=== PATIENT | male | born 1975 | race Caucasian/White ===

== ENCOUNTER 2017-06-05 10:31 | Emergency (ER) | payer OTHER, SELFPAY ==
[2017-06-05] MEDS ORDERED: Norflex 60 MG/2 ML IM ONE (10:43)
[2017-06-05] MEDS ORDERED: TORAdol 30 mg Injection IM ONE (10:43)
--- NOTE | 2017-06-05 10:45 | ERPHSYRPT ---
- History of Present Illness Time Seen by Provider: 06/05/17 10:37 Source: patient Patient Subjective Stated Complaint: PT REPORTS THAT HE HAS CHRONIC BACK PAIN ET NEEDS A PAIN SHOT-DENIES INJURY-STATES THAT HE CONTACTED PCP [facility] INFORMED THAT THEY NO LONGER GAVE PAIN SHOTS-STATES THAT HE USUALLY TAKES VICODIN FOR PAIN Triage Nursing Assessment: PT PINK WARM ET [id number] TO ED ROOM WITH NO LIMP-MOVING ALL EXTEMITIES-NO BRUISING ABRASIONS NOTED-PT DENIES INJURY Physician History: CC: pain hx: 41 y/o patient of Dr Lizama with hx of chronic back pain. He takes norco. He has depression meds. He complains of pain in whole body, most centered from back. No fever or chills. Normal urination. No myalgias or joint pains. No rash. He is not out of his medications. Pain is severe and worse than usual not relieved by his norco at home. No recent fall or injury. Normal urination without hematuria or incontinence. No N/T/W. No chest or abd pain. Timing/Duration: today Severity: severe Allergies/Adverse Reactions: No Known Drug Allergies Allergy (Verified 06/05/17 10:41) Hx Tetanus, Diphtheria Vaccination/Date Given: No Hx Influenza Vaccination/Date Given: No Hx Pneumococcal Vaccination/Date Given: No Immunizations Up to Date: Yes - Review of Systems Constitutional: No Fever, No Chills Eyes: No Symptoms Ears, Nose, & Throat: No Symptoms Respiratory: No Dyspnea Cardiac: No Chest Pain Abdominal/Gastrointestinal: No Abdominal Pain Genitourinary Symptoms: No Dysuria, No Hematuria, No Incontinence Musculoskeletal: Back Pain, No Injury, No Joint Pain, No Myalgias Skin: No Rash Neurological: No Focal Weakness, No Headache, No Parasthesia All Other Systems: Reviewed and Negative - Past Medical History Pertinent Past Medical History: Yes Musculoskeletal History: Other GI Medical History: Hepatitis Psycho-Social History: Depression Other Medical History: back problems - Past Surgical History Past Surgical History: No - Social History Smoking Status: Current every day smoker How long have you smoked: YRS Exposure to second hand smoke: No Drug Use: none Patient Lives Alone: No - Nursing Vital Signs Nursing Vital Signs: Initial Vital Signs Temperature 98.3 F 06/05/17 10:37 Pulse Rate 82 06/05/17 10:37 Respiratory Rate 20 06/05/17 10:37 Blood Pressure 135/66 06/05/17 10:37 O2 Sat by Pulse Oximetry 97 06/05/17 10:37 Pain Scale Pain Intensity 10 - Physical Exam General Appearance: alert, other (ambulatory) Eye Exam: PERRL/EOMI Ears, Nose, Throat Exam: normal ENT inspection, moist mucous membranes Neck Exam: normal inspection, non-tender, supple Respiratory Exam: normal breath sounds Cardiovascular Exam: regular rate/rhythm Gastrointestinal/Abdomen Exam: soft, No tenderness, No distention Male Genitalia Exam: normal genitalia Back Exam: normal inspection, other (diffuse discomfort) Extremity Exam: normal inspection, normal range of motion Neurologic Exam: alert, oriented x 3, cooperative, sensation nml, No motor deficits Skin Exam: warm, dry, No rash - Course Nursing assessment & vital signs reviewed: Yes Ordered Tests: Active Orders 24 hr Category Date Time Status Clean Catch Urine Specimen STAT Care 06/05/17 10:43 Active UA W/ MICROSCOPIC Stat Lab 06/05/17 10:43 Completed Urine Triage Profile Stat Lab 06/05/17 10:43 Completed Medication Summary Discontinued Medications Generic Name Dose Route Start Last Admin Trade Name Freq PRN Reason Stop Dose Admin Ketorolac Tromethamine 60 mg 06/05/17 10:43 06/05/17 10:54 Toradol 30 Mg Injection IM 06/05/17 10:44 60 mg STAT ONE Administration Ketorolac Tromethamine Confirm 06/05/17 10:49 Toradol 30 Mg Injection Administered 06/05/17 10:50 Dose 60 mg .ROUTE .STK-MED ONE Orphenadrine Citrate 60 mg 06/05/17 10:43 06/05/17 10:54 Norflex 60 Mg/2 Ml IM 06/05/17 10:44 60 mg STAT ONE Administration Orphenadrine Citrate Confirm 06/05/17 10:50 Norflex 60 Mg/2 Ml Administered 06/05/17 10:51 Dose 60 mg .ROUTE .STK-MED ONE Lab/Rad Data: Laboratory Results 06/05/17 06/05/17 Range/Units 10:43 10:43 Ur Collection Type VOID Urine Color YELLOW (YELLOW) Urine Appearance CLEAR (CLEAR) Urine pH 5.5 (5-6) Ur Specific Cornish 1.010 (1.005-1.025) Urine Protein NEGATIVE (Negative) Urine Ketones NEGATIVE (NEGATIVE) Urine Blood 50 (0-5) Chris/ul Urine Nitrite NEGATIVE (NEGATIVE) Urine Bilirubin NEGATIVE (NEGATIVE) Urine Urobilinogen NORMAL (0-1) mg/dL Ur Leukocyte Esterase NEGATIVE (NEGATIVE) Urine Microscopic RBC 2-5 (0-2) /HPF Ur Epithelial Cells RARE (FEW) /HPF Urine Bacteria RARE (NEGATIVE) /HPF Urine Glucose NEGATIVE (NEGATIVE) mg/dL Urine Opiates Level NEG. (NEGATIVE) Ur Methadone NEG. (NEGATIVE) Urine Barbiturates NEG. (NEGATIVE) Ur Phencyclidine (PCP) NEG. (NEGATIVE) Urine Amphetamine NEG. (NEGATIVE) U Benzodiazepine Level POS. (NEGATIVE) Urine Cocaine NEG. (NEGATIVE) Urine Marijuana (THC) NEG. (NEGATIVE) Specimen Received 06/05/17 1031 - Progress Progress Note: 06/05/17 10:48 He appears to have exacerbation of pain in back and whole body. Nothing specific. Denies urinary symptoms. Toradol and norflex given. Advised follow up with Dr Lizama. 06/05/17 11:12 UA neg Counseled pt/family regarding: diagnosis, need for follow-up - Departure Time of Disposition: 11:12 Departure Disposition: Home Clinical Impression: Exacerbation of chronic back pain, Chronic pain syndrome Condition: Stable Critical Care Time: No Referrals: ROMAN LIZAMA [Primary Care Provider] - Instructions: Low Back Pain, Chronic Pain -- Adult Additional Instructions: Rx norflex. Rx motrin. Take norco as already prescribed by Dr Lizama. Follow up this week with Dr Lizama. No driving today or while taking norflex. Prescriptions: Ibuprofen 600 mg PO Q6H PRN PRN #20 tablet PRN Reason: Pain Orphenadrine Citrate 100 mg [Norflex 100 MG Tablet] 1 tab PO BID #10 tab
[2017-06-05 10:48] VITALS: BP 135/66; PULSE 82; O2SAT 97
[2017-06-05] MEDS ORDERED: TORAdol 30 mg Injection ONE (10:49)
[2017-06-05] MEDS ORDERED: Norflex 60 MG/2 ML ONE (10:50)
[2017-06-05 10:57] LABS: Bilirubin NEGATIVE (NEGATIVE); Blood 50 Ery/ul (0-5); COMPLETE URINE MICROSCOPIC? YES; Collection Type VOID; Glucose NEGATIVE (NEGATIVE); Leukocyte Esterase NEGATIVE (NEGATIVE)
[2017-06-05 11:02] LABS: ADD URINE CULTURE? NO (NO); Bacteria RARE /HPF (NEGATIVE); Epithelial Cells RARE /HPF (FEW)
== END 2017-06-05 12:01 | disposition home or self-care (01) ==
LOC: ED 10:31
DX: M54.9 Dorsalgia, unspecified (principal); G89.29 Other chronic pain; G89.4 Chronic pain syndrome
CPT/HCPCS: 80307; 81000; 96372; 96374; 99284; J1885; J2360

== ENCOUNTER 2018-11-09 10:23 | Emergency (ER) | payer OTHER ==
[2018-11-09] MEDS ORDERED: DECADRON 10MG INJ. IM ONE (10:37)
[2018-11-09] MEDS ORDERED: TORAdol 30 mg Injection IM ONE (10:37)
[2018-11-09] MEDS ORDERED: Norflex 60 MG/2 ML IM ONE (10:37)
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
[2018-11-09] MEDS ORDERED: TORAdol 30 mg Injection ONE (10:58)
[2018-11-09] MEDS ORDERED: Norflex 60 MG/2 ML ONE (10:58)
[2018-11-09] MEDS ORDERED: DECADRON 10MG INJ. ONE (10:58)
[2018-11-09 11:40] VITALS: BP 109/95; PULSE 78; O2SAT 96
== END 2018-11-09 11:50 | disposition home or self-care (01) ==
LOC: ED 10:23
DX: M54.6 Pain in thoracic spine (principal); G89.29 Other chronic pain; M62.830 Muscle spasm of back
CPT/HCPCS: 96372; 99284; J1100; J1885; J2360

== ENCOUNTER 2019-11-07 10:33 | Emergency (ER) | payer OTHER ==
--- NOTE | 2019-11-07 10:40 | ERPHSYRPT ---
- History of Present Illness Time Seen by Provider: 11/07/19 10:35 Historian: patient, family Exam Limitations: no limitations Physician History: Is a 44-year-old white male who has chronic issues with depression and anxiety and has been taking his medications as prescribed. Patient denies a history of cardiac problems. He does smoke cigarettes. Patient stress issues have not changed. Patient noticed chest pain symptoms beginning last night. This morning, his chest pain is worse. It is sharp centrally located in substernal without radiation. Patient has associated palpitations. Patient has never had this type of sensation before. Patient denies nausea vomiting and diarrhea. Patient does not have abdominal pain. Patient did not take any aspirin or nitroglycerin. Timing/Duration: yesterday, worse Quality: sharpness Location: substernal, central Chest Pain Radiation: no radiation Severity of Pain-Max: moderate Severity of Pain-Current: moderate Modifying Factors: Worsens With: nitroglycerin, aspirin Associated Symptoms: palpitations Prior Chest Pain/Cardiac Workup: no prior chest pain, no prior cardiac workup Nitro Today/Relief: no nitro taken today Aspirin Treatment Today: no aspirin today Allergies/Adverse Reactions: No Known Drug Allergies Allergy (Verified 11/07/19 10:57) Home Medications: Duloxetine HCl 60 mg PO BID 11/07/19 [History] Famotidine 20 mg [Pepcid 20 MG] 20 mg PO BID 11/07/19 [History] Fexofenadine HCl 180 mg PO DAILY 11/07/19 [History] Hydrocodone/Acetaminophen [Hydrocodone-Acetamin 7.5-325] 1 ea PO UD 11/07/19 [ History] clonazePAM [Clonazepam] 0.5 mg PO UD 11/07/19 [History] Hx Tetanus, Diphtheria Vaccination/Date Given: No Hx Influenza Vaccination/Date Given: No Hx Pneumococcal Vaccination/Date Given: No - Review of Systems Constitutional: No Symptoms Eyes: No Symptoms Ears, Nose, & Throat: No Symptoms Respiratory: No Symptoms Cardiac: Chest Pain Abdominal/Gastrointestinal: No Symptoms Genitourinary Symptoms: No Symptoms Musculoskeletal: No Symptoms Skin: No Symptoms Neurological: No Symptoms Psychological: Anxiety Endocrine: No Symptoms Hematologic/Lymphatic: No Symptoms Immunological/Allergic: No Symptoms All Other Systems: Reviewed and Negative - Past Medical History Pertinent Past Medical History: Yes Neurological History: No Pertinent History ENT History: No Pertinent History Cardiac History: No Pertinent History Respiratory History: No Pertinent History Endocrine Medical History: No Pertinent History Musculoskeletal History: No Pertinent History, Other GI Medical History: No Pertinent History, Hepatitis History: No Pertinent History Psycho-Social History: Depression Male Reproductive Disorders: No Pertinent History Other Medical History: back problems - Past Surgical History Past Surgical History: No Neuro Surgical History: No Pertinent History Cardiac: No Pertinent History Respiratory: No Pertinent History Gastrointestinal: No Pertinent History Genitourinary: No Pertinent History Musculoskeletal: No Pertinent History Male Surgical History: No Pertinent History - Social History Smoking Status: Current every day smoker How long have you smoked: YRS Exposure to second hand smoke: No Alcohol Use: Socially Drug Use: none Patient Lives Alone: No Significant Family History: no pertinent family hx - Nursing Vital Signs Nursing Vital Signs: Initial Vital Signs Temperature 98.2 F 11/07/19 10:36 Pulse Rate 102 H 11/07/19 10:36 Respiratory Rate 11/07/19 10:36 Blood Pressure 116/105 11/07/19 10:36 O2 Sat by Pulse Oximetry 99 11/07/19 10:36 Pain Scale Pain Intensity 5 - Physical Exam General Appearance: moderate distress, alert, anxiety Eye Exam: PERRL/EOMI, eyes nml inspection Ears, Nose, Throat Exam: normal ENT inspection, moist mucous membranes Neck Exam: normal inspection, non-tender, supple, full range of motion Respiratory Exam: normal breath sounds, chest tenderness, lungs clear, airway intact, No respiratory distress Cardiovascular Exam: tachycardia (mild) Gastrointestinal/Abdomen Exam: soft, normal bowel sounds, No tenderness Rectal Exam: not done Back Exam: normal inspection, normal range of motion, No CVA tenderness, No vertebral tenderness Extremity Exam: normal inspection, normal range of motion, pelvis stable Neurologic Exam: alert, oriented x 3, cooperative, bed manager II-XII nml as tested Skin Exam: normal color, warm, dry Lymphatic Exam: No adenopathy SpO2 Interpretation: normal O2 Delivery: Room Air - Course Nursing assessment & vital signs reviewed: Yes EKG Interpreted by Me: RATE ([id number]), Sinus Rhythm, NORMAL AXIS, NORMAL INTERVALS, NORMAL QRS, Other (No comparison EKG available) Ordered Tests: Active Orders 24 hr Category Date Time Status Flash Developer STAT Care 11/07/19 10:43 Active EKG-ER Only STAT Care 11/07/19 10:42 Active IV Insertion STAT Care 11/07/19 10:42 Active Pulse Oximetry (ED) STAT Care 11/07/19 10:42 Active CHEST 1 VIEW (PORTABLE) Stat Exams 11/07/19 10:43 Completed CBC W DIFF Stat Lab 11/07/19 10:57 Completed CMP Stat Lab 11/07/19 10:57 Completed D-DIMER QUANTITATIVE Stat Lab 11/07/19 10:57 Completed NT PRO BNP Stat Lab 11/07/19 10:57 Completed PROTIME WITH INR Stat Lab 11/07/19 10:57 Completed TROPONIN Q3H Lab 11/07/19 10:57 Completed TROPONIN Q3H Lab 11/07/19 13:45 Ordered TROPONIN Q3H Lab 11/07/19 16:45 Ordered TROPONIN Q3H Lab 11/07/19 19:45 Ordered TROPONIN Q3H Lab 11/07/19 22:45 Ordered UA W/RFX UR CULTURE Stat Lab 11/07/19 11:16 Completed Urine Triage Profile Stat Lab 11/07/19 11:16 Completed Medication Summary Generic Name Dose Route Start Last Admin Trade Name Freq PRN Reason Stop Dose Admin Sodium Chloride 1,000 mls @ 999 mls/hr 11/07/19 11:46 11/07/19 11:52 Sodium Chloride 0.9% 1000 Ml IV 11/07/19 12:46 999 mls/hr .Q1H1M STA Administration Discontinued Medications Generic Name Dose Route Start Last Admin Trade Name Freq PRN Reason Stop Dose Admin Acetaminophen 650 mg 11/07/19 11:33 11/07/19 11:35 Tylenol 325 Mg PO 11/07/19 11:34 650 mg STAT ONE Administration Acetaminophen Confirm 11/07/19 11:35 Tylenol 325 Mg Administered 11/07/19 11:36 Dose 650 mg .ROUTE .STK-MED ONE Acetaminophen Confirm 11/07/19 11:37 Tylenol 325 Mg Administered 11/07/19 11:38 Dose 325 mg .ROUTE .STK-MED ONE Aspirin 324 mg 11/07/19 10:42 11/07/19 10:47 Baby Aspirin 81 Mg Chew PO 11/07/19 10:43 324 mg STAT ONE Administration Aspirin Confirm 11/07/19 10:46 Baby Aspirin 81 Mg Chew Administered 11/07/19 10:47 Dose 324 mg .ROUTE .STK-MED ONE Sodium Chloride Confirm 11/07/19 11:49 Sodium Chloride 0.9% 1000 Ml Administered 11/07/19 11:50 Dose 1,000 mls @ ud .ROUTE .STK-MED ONE Morphine Sulfate 2 mg 11/07/19 11:47 11/07/19 11:52 Morphine Sulfate 2 Mg Inj IV 11/07/19 11:48 2 mg STAT ONE Administration Morphine Sulfate Confirm 11/07/19 11:49 Morphine Sulfate 2 Mg Inj Administered 11/07/19 11:50 Dose 2 mg .ROUTE .STK-MED ONE Lab/Rad Data: Laboratory Result Diagrams 11/07/19 10:57 11/07/19 10:57 Laboratory Results 11/07/19 11/07/19 11/07/19 Range/Units 11:16 11:16 10:57 WBC (4.0-10.5) K/mm3 RBC (4.1-5.6) M/mm3 Hgb (12.5-18.0) gm/dl Hct (42-50) % MCV (78-100) fl MCH (26-32) pg MCHC (32-36) g/dl RDW (11.5-14.0) % Plt Count (150-450) K/mm3 MPV (7.5-11.0) fl Gran % (36.0-66.0) % Eos # (Auto) (0-0.5) Absolute Lymphs (auto) (1.0-4.6) Absolute Monos (auto) (0.0-1.3) Lymphocytes % (24.0-44.0) % Monocytes % (0.0-12.0) % Eosinophils % (0.00-5.0) % Basophils % (0.0-0.4) % Absolute Granulocytes (1.4-6.9) Basophils # (0-0.4) PT (8.83-12.87) SECONDS INR (0.8-3.0) D-Dimer (215-500) ng/mL Sodium (137-145) mmol/L Potassium (3.5-5.1) mmol/L Chloride (98-107) mmol/L Carbon Dioxide (22-30) mmol/L Anion Gap (5-15) MEQ/L BUN (9-20) mg/dL Creatinine (0.66-1.25) mg/dL Estimated GFR ML/MIN Glucose (74-106) mg/dL Calcium (8.4-10.2) mg/dL Total Bilirubin (0.2-1.3) mg/dL AST (17-59) U/L ALT (0-50) U/L Alkaline Phosphatase (38-126) U/L Troponin I < 0.012 (0.000-0.034) ng/mL NT-Pro-B Natriuret Pep (0-450) pg/mL Serum Total Protein (6.3-8.2) g/dL Albumin (3.5-5.0) g/dL Urine Color YELLOW (YELLOW) Urine Appearance SLIGHTLY CLOUDY (CLEAR) Urine pH 5.0 (5-6) Ur Specific Lorraine 1.026 (1.005-1.025) Urine Protein 30 (Negative) Urine Ketones TRACE (NEGATIVE) Urine Blood SMALL (0-5) Chris/ul Urine Nitrite NEGATIVE (NEGATIVE) Urine Bilirubin NEGATIVE (NEGATIVE) Urine Urobilinogen NEGATIVE (0-1) mg/dL Ur Leukocyte Esterase NEGATIVE (NEGATIVE) Urine WBC (Auto) 3-5 (0-5) /HPF Urine RBC (Auto) 6-10 (0-2) /HPF U Hyaline Cast (Auto) 6-10 (0-2) /LPF U Epithel Cells (Auto) NONE (FEW) /HPF Urine Bacteria (Auto) NONE (NEGATIVE) /HPF Urine Mucus (Auto) SLIGHT (NEGATIVE) /HPF Urine Sperm (Auto) PRESENT (NEGATIVE) /HPF Urine Culture Reflexed NO (NO) Urine Glucose NEGATIVE (NEGATIVE) mg/dL Urine Opiates Level POSITIVE (NEGATIVE) Ur Methadone NEGATIVE (NEGATIVE) Urine Barbiturates NEGATIVE (NEGATIVE) Ur Phencyclidine (PCP) NEGATIVE (NEGATIVE) Urine Amphetamine POSITIVE (NEGATIVE) U Benzodiazepine Level NEGATIVE (NEGATIVE) Urine Cocaine NEGATIVE (NEGATIVE) Urine Marijuana (THC) POSITIVE (NEGATIVE) 11/07/19 11/07/19 11/07/19 Range/Units 10:57 10:57 10:57 WBC 20.0 H (4.0-10.5) K/mm3 RBC 5.88 H (4.1-5.6) M/mm3 Hgb 18.1 H (12.5-18.0) gm/dl Hct 53.1 H (42-50) % MCV 90.3 (78-100) fl MCH 30.8 (26-32) pg MCHC 34.1 (32-36) g/dl RDW 13.9 (11.5-14.0) % Plt Count 223 (150-450) K/mm3 MPV 9.9 (7.5-11.0) fl Gran % 89.0 H (36.0-66.0) % Eos # (Auto) 0.03 (0-0.5) Absolute Lymphs (auto) 1.55 (1.0-4.6) Absolute Monos (auto) 0.61 (0.0-1.3) Lymphocytes % 7.7 L (24.0-44.0) % Monocytes % 3.0 (0.0-12.0) % Eosinophils % 0.1 (0.00-5.0) % Basophils % 0.2 (0.0-0.4) % Absolute Granulocytes 17.77 H (1.4-6.9) Basophils # 0.05 (0-0.4) PT 12.1 (8.83-12.87) SECONDS INR 1.07 (0.8-3.0) D-Dimer 252 (215-500) ng/mL Sodium 145 (137-145) mmol/L Potassium 3.8 (3.5-5.1) mmol/L Chloride 106 (98-107) mmol/L Carbon Dioxide 27 (22-30) mmol/L Anion Gap 15.4 H (5-15) MEQ/L BUN 24 H (9-20) mg/dL Creatinine 1.26 H (0.66-1.25) mg/dL Estimated GFR > 60.0 ML/MIN Glucose 89 (74-106) mg/dL Calcium 10.5 H (8.4-10.2) mg/dL Total Bilirubin 0.70 (0.2-1.3) mg/dL AST 20 (17-59) U/L ALT 14 (0-50) U/L Alkaline Phosphatase 80 (38-126) U/L Troponin I (0.000-0.034) ng/mL NT-Pro-B Natriuret Pep 39.6 (0-450) pg/mL Serum Total Protein 8.3 H (6.3-8.2) g/dL Albumin 4.9 (3.5-5.0) g/dL Urine Color (YELLOW) Urine Appearance (CLEAR) Urine pH (5-6) Ur Specific Lorraine (1.005-1.025) Urine Protein (Negative) Urine Ketones (NEGATIVE) Urine Blood (0-5) Chris/ul Urine Nitrite (NEGATIVE) Urine Bilirubin (NEGATIVE) Urine Urobilinogen (0-1) mg/dL Ur Leukocyte Esterase (NEGATIVE) Urine WBC (Auto) (0-5) /HPF Urine RBC (Auto) (0-2) /HPF U Hyaline Cast (Auto) (0-2) /LPF U Epithel Cells (Auto) (FEW) /HPF Urine Bacteria (Auto) (NEGATIVE) /HPF Urine Mucus (Auto) (NEGATIVE) /HPF Urine Sperm (Auto) (NEGATIVE) /HPF Urine Culture Reflexed (NO) Urine Glucose (NEGATIVE) mg/dL Urine Opiates Level (NEGATIVE) Ur Methadone (NEGATIVE) Urine Barbiturates (NEGATIVE) Ur Phencyclidine (PCP) (NEGATIVE) Urine Amphetamine (NEGATIVE) U Benzodiazepine Level (NEGATIVE) Urine Cocaine (NEGATIVE) Urine Marijuana (THC) (NEGATIVE) - Progress Progress Note: 11/07/19 12:28 cxr-no acute process. Medical decision making: pt has postive urine drug screen for methamphetamines, thc and opiates. his hr, ekg, d dimer, bnp, and troponin are normal. pt has no known cardiac dz. pt does have ketonuria, pyuria and leukocytosis. will discharge pt to home, give rx for keflex, and instructions to follow up with pcp. Blood Culture(s) Obtained: No Antibiotics given: Yes Counseled pt/family regarding: lab results, diagnosis, need for follow-up, rad results - Departure Departure Disposition: Home Clinical Impression: Chest pain, Methamphetamine abuse, Leukocytosis, Pyuria, Dehydration, mild Condition: Stable Critical Care Time: No Referrals: ROMAN IBANEZ [Primary Care Provider] - Additional Instructions: drink plenty of fluids. follow up with primary doctor for further management. stop methamphetamine use. Prescriptions: Cephalexin Mh 500 mg [Keflex 500 mg] 500 mg PO TID #21 capsule
[2019-11-07] MEDS ORDERED: BABY ASPIRIN 81 MG CHEW PO ONE (10:42)
[2019-11-07] MEDS ORDERED: BABY ASPIRIN 81 MG CHEW ONE (10:46)
[2019-11-07 11:06] LABS: Absolute Neutrophil Ct (ANC) 17.77 (1.4-6.9); BASOPHIL % 0.2 % (0.0-0.4); Basophil (Absolute #) 0.05 (0-0.4); Eosinophil % 0.1 % (0.00-5.0); Eosinophil (Absolute #) 0.03 (0-0.5); Hematocrit 53.1 % (42-50); Hemoglobin 18.1 gm/dl (12.5-18.0); Lymphocyte (Absolute #) 1.55 (1.0-4.6); Lymphocytes % 7.7 % (24.0-44.0); Mean Cell Volume 90.3 fl (78-100); Mean Corpuscular Hemoglobin 30.8 pg (26-32); Mean Corpuscular Hgb Concent. 34.1 g/dl (32-36); Mean Platelet Volume 9.9 fl (7.5-11.0); Monocyte (Absolute #) 0.61 (0.0-1.3); Platelet Count 223 K/mm3 (150-450); Red Blood Count 5.88 M/mm3 (4.1-5.6); Red Cell Distribution Width 13.9 % (11.5-14.0)
[2019-11-07 11:09] LABS: INR 1.07 (0.8-3.0); PROTIME 12.1 SECONDS (8.83-12.87)
--- NOTE | 2019-11-07 11:16 | XRAY ---
Indication: Short of breath. Comparison: July 04, 2016. Portable chest again demonstrates normal heart and lungs. Bony thorax intact. No new/acute findings.
[2019-11-07 11:21] LABS: ALBUMIN 4.9 g/dL (3.5-5.0); ALKALINE PHOSPHATASE 80 U/L (38-126); ANION GAP 15.4 MEQ/L (5-15); BLOOD UREA NITROGEN 24 mg/dL (9-20); CHLORIDE 106 mmol/L (98-107); Calcium 10.5 mg/dL (8.4-10.2); Carbon Dioxide 27 mmol/L (22-30); Creatinine 1 1.26 mg/dL (0.66-1.25); Glucose 89 mg/dL (74-106); NT PRO BNP 39.6 pg/mL (0-450); Potassium 3.8 mmol/L (3.5-5.1); SGOT/AST 20 U/L (17-59); SGPT/ALT 14 U/L (0-50); SODIUM 145 mmol/L (137-145); Total Protein 8.3 g/dL (6.3-8.2)
[2019-11-07 11:33] VITALS: O2SAT 98
[2019-11-07] MEDS ORDERED: TYLENOL 325 MG PO ONE (11:33)
[2019-11-07] MEDS ORDERED: TYLENOL 325 MG ONE ×2 (11:35→11:37)
[2019-11-07 11:41] LABS: Appearance SLIGHTLY CLOUDY (CLEAR); Bilirubin NEGATIVE (NEGATIVE); Blood SMALL Ery/ul (0-5); Glucose NEGATIVE (NEGATIVE); Ketones TRACE (NEGATIVE); Leukocyte Esterase NEGATIVE (NEGATIVE); Mucus SLIGHT /HPF (NEGATIVE); Nitrite NEGATIVE (NEGATIVE); Protein,Urine Dip 30 (Negative); Specific Gravity 1.026 (1.005-1.025); Sperm PRESENT /HPF (NEGATIVE); Urobilinogen NEGATIVE mg/dL (0-1)
[2019-11-07 11:43] LABS: Barbiturate,Urine NEGATIVE (NEGATIVE); Benzodiazepine,Urine NEGATIVE (NEGATIVE); Cocaine,Urine NEGATIVE (NEGATIVE); Methadone,Urine NEGATIVE (NEGATIVE); Opiate,Urine POSITIVE (NEGATIVE); PCP,Urine NEGATIVE (NEGATIVE); THC,Urine POSITIVE (NEGATIVE)
[2019-11-07] MEDS ORDERED: Sodium Chloride 0.9% 1000 ML 1,000 ML IV STA (11:46)
[2019-11-07] MEDS ORDERED: MORPHINE SULFATE 2 MG INJ IV ONE (11:47)
[2019-11-07] MEDS ORDERED: Sodium Chloride 0.9% 1000 ML 1,000 ML ONE (11:49)
[2019-11-07] MEDS ORDERED: MORPHINE SULFATE 2 MG INJ ONE (11:49)
[2019-11-07 12:28] LABS: Amphetamine,Urine POSITIVE (NEGATIVE)
[2019-11-07 12:48] VITALS: BP 118/80; PULSE 92
== END 2019-11-07 12:52 | disposition home or self-care (01) ==
LOC: ED 10:33
DX: R07.89 Other chest pain (principal); F15.10 Other stimulant abuse, uncomplicated; D72.829 Elevated white blood cell count, unspecified; R82.81 Pyuria; E86.0 Dehydration; R00.2 Palpitations; Z79.899 Other long term (current) drug therapy; Z79.891 Long term (current) use of opiate analgesic
CPT/HCPCS: 36000; 36415; 71045; 80053; 80307; 81001; 83880; 84484; 85025; 85379; 85610; 93005; 93041; 94760; 96360; 96374; 99284; J2270; A9270-GY

== ENCOUNTER 2019-11-16 20:22 | Emergency (ER) | payer OTHER ==
[2019-11-16] MEDS ORDERED: TORAdol 30 mg Injection IM ONE (22:57)
[2019-11-16] MEDS ORDERED: TORAdol 30 mg Injection ONE (23:13)
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
[2019-11-17] MEDS ORDERED: MORPHINE SULFATE 2 MG INJ ONE (01:00)
[2019-11-17] MEDS ORDERED: MORPHINE SULFATE 2 MG INJ IM ONE (01:01)
[2019-11-17 02:31] VITALS: BP 100/67; PULSE 77
[2019-11-17 06:30] VITALS: O2SAT 95
--- NOTE | 2019-11-17 09:12 | XRAY ---
Indication: Pain and edema following injury. Comparison: None 3 views of the left hand obtained. No bony, articular, or soft tissue abnormalities.
== END 2019-11-17 01:10 | disposition home or self-care (01) ==
LOC: ED 20:22
DX: M79.642 Pain in left hand (principal); Z79.899 Other long term (current) drug therapy; Z79.891 Long term (current) use of opiate analgesic
CPT/HCPCS: 73130; 96372; 99284; J1885; J2270

== ENCOUNTER 2020-01-03 18:18 | Emergency (ER) | payer OTHER ==
[2020-01-03] MEDS ORDERED: Inapsine 5 MG/2 ML IV ONE (18:30)
[2020-01-03] MEDS ORDERED: TORAdol 30 mg Injection IV ONE ×2 (18:30→19:23)
[2020-01-03] MEDS ORDERED: BENADRYL 50 MG/ML IV ONE ×2 (18:30→19:24)
--- NOTE | 2020-01-03 18:37 | ERPHSYRPT ---
- History of Present Illness Source: patient Exam Limitations: no limitations Hx Tetanus, Diphtheria Vaccination/Date Given: (unknown) Hx Influenza Vaccination/Date Given: No Hx Pneumococcal Vaccination/Date Given: No <KENNETH ACOSTA - Last Filed: 01/03/20 18:32> - History of Present Illness Timing/Duration: today Severity: moderate Associated Symptoms: other (flank pain) <JOSH AUSTIN - Last Filed: 01/03/20 20:19> - History of Present Illness Time Seen by Provider: 01/03/20 18:25 Physician History: Patient is here with left lower back pain. States it feels like "kidney pain". States he has been treated for a UTI the past few weeks. However, pain acutely got worse in the past 2 hours. No falls no trauma. No fever no chills. Pain is not radiating. Patient has no red flag symptoms for back pain today: No Loss of control of the bowel or bladder. No weakness or numbness in a leg or arm. No foot drop, disturbed gait. No high fever, no recent IV drug use, per patient No saddle anaesthesia (numbness of the anus, perineum or genitals). No trauma or h/o cancer Location: left flank Quality: sharp Radiation: none Severity: moderate Duration: 2 hours Timing: suddenly Modifying factors/associated signs and symptoms: recent UTI treatment. (KENNETH ACOSTA) Allergies/Adverse Reactions: No Known Drug Allergies Allergy (Verified 01/03/20 18:34) Home Medications: Duloxetine HCl 60 mg PO BID 11/07/19 [History] Hydrocodone/Acetaminophen [Hydrocodone-Acetamin 7.5-325] 1 ea PO UD 11/07/19 [ History] Famotidine 20 mg [Pepcid 20 MG] 20 mg PO DAILY 11/16/19 [History] clonazePAM [Clonazepam] 0.5 mg PO BID 11/16/19 [History] Travel Risk - International Travel Have you traveled outside of the country in past 3 weeks: No Have you or anyone close to you been diagnosed with or: No Do your reside in a community with a known COVID-19 case?: Yes If Yes where:: [place] <KENNETH ACOSTA - Last Filed: 01/03/20 18:32> - Review of Systems Constitutional: No Fever, No Chills Eyes: No Symptoms Ears, Nose, & Throat: No Symptoms Respiratory: No Cough, No Dyspnea Cardiac: No Chest Pain, No Edema, No Syncope Abdominal/Gastrointestinal: No Abdominal Pain, No Nausea, No Vomiting, No Diarrhea Genitourinary Symptoms: No Dysuria Musculoskeletal: Other (left flank pain ), No Back Pain, No Neck Pain Skin: No Rash Neurological: No Dizziness, No Focal Weakness, No Sensory Changes Psychological: No Symptoms Endocrine: No Symptoms All Other Systems: Reviewed and Negative <KENNETH ACOSTA - Last Filed: 01/03/20 18:32> - Past Medical History Pertinent Past Medical History: Yes Neurological History: No Pertinent History ENT History: No Pertinent History Cardiac History: No Pertinent History Respiratory History: No Pertinent History Endocrine Medical History: No Pertinent History Musculoskeletal History: No Pertinent History, Other GI Medical History: Hepatitis History: No Pertinent History Psycho-Social History: Anxiety, Depression Male Reproductive Disorders: No Pertinent History Other Medical History: back problems - Past Surgical History Past Surgical History: No Neuro Surgical History: No Pertinent History Cardiac: No Pertinent History Respiratory: No Pertinent History Gastrointestinal: No Pertinent History Genitourinary: No Pertinent History Musculoskeletal: No Pertinent History Male Surgical History: No Pertinent History - Social History Smoking Status: Current every day smoker How long have you smoked: YRS Exposure to second hand smoke: Yes Alcohol Use: Socially Drug Use: marijuana, methamphetamines Patient Lives Alone: No Significant Family History: no pertinent family hx <KENNETH ACOSTA - Last Filed: 01/03/20 18:32> - Physical Exam General Appearance: no apparent distress, alert Eye Exam: PERRL/EOMI, eyes nml inspection Ears, Nose, Throat Exam: normal ENT inspection, TMs normal, pharynx normal, moist mucous membranes Neck Exam: normal inspection, non-tender, supple, full range of motion Respiratory Exam: normal breath sounds, lungs clear, No respiratory distress Cardiovascular Exam: regular rate/rhythm, normal heart sounds, normal peripheral pulses Gastrointestinal/Abdomen Exam: soft, normal bowel sounds, other (left flank tenderness. normal testicle exam. no signs of torsion. ), No tenderness, No mass Back Exam: normal inspection, normal range of motion, No CVA tenderness, No vertebral tenderness Extremity Exam: normal inspection, normal range of motion, pelvis stable Neurologic Exam: alert, oriented x 3, cooperative, normal mood/affect, nml cerebellar function, nml station & gait, sensation nml, No motor deficits Skin Exam: normal color, warm, dry, No rash Lymphatic Exam: No adenopathy <KENNETH ACOSTA - Last Filed: 01/03/20 18:32> - Nursing Vital Signs Nursing Vital Signs: Initial Vital Signs Temperature 98.2 F 01/03/20 18:23 Pulse Rate 92 H 01/03/20 18:23 Respiratory Rate 16 01/03/20 18:23 Blood Pressure 140/104 01/03/20 18:23 O2 Sat by Pulse Oximetry 98 01/03/20 18:23 Pain Scale Pain Intensity 6 - Course Nursing assessment & vital signs reviewed: Yes - CT Exams Abdomen/Pelvis CT Interpretation: Tele-radiologist Report, Other (renal stones and umbilical hernia nonobst) <JOSH AUSTIN - Last Filed: 01/03/20 20:19> Ordered Tests: Active Orders 24 hr Category Date Time Status IV Insertion STAT Care 01/03/20 18:30 Active NPO (ED) STAT Care 01/03/20 18:30 Active ABDOMEN AND PELVIS W/0 CONTRAS [CT] Stat Exams 01/03/20 18:30 Taken CBC W DIFF Stat Lab 01/03/20 18:38 Completed CMP Stat Lab 01/03/20 18:38 Completed LIPASE Stat Lab 01/03/20 18:38 Completed UA W/RFX UR CULTURE Stat Lab 01/03/20 18:38 Completed Urine Triage Profile Stat Lab 01/03/20 18:38 Completed Medication Summary Discontinued Medications Generic Name Dose Route Start Last Admin Trade Name Layla PRN Reason Stop Dose Admin Diphenhydramine HCl 25 mg 01/03/20 18:30 01/03/20 18:42 Benadryl 50 Mg/Ml IV 01/03/20 18:31 25 mg STAT ONE Administration Diphenhydramine HCl Confirm 01/03/20 18:38 Benadryl 50 Mg/Ml Administered 01/03/20 18:39 Dose 50 mg .ROUTE .STK-MED ONE Diphenhydramine HCl 25 mg 01/03/20 19:24 01/03/20 19:34 Benadryl 50 Mg/Ml IV 01/03/20 19:25 25 mg STAT ONE Administration Diphenhydramine HCl Confirm 01/03/20 19:29 Benadryl 50 Mg/Ml Administered 01/03/20 19:30 Dose 50 mg .ROUTE .STK-MED ONE Droperidol 1.25 mg 01/03/20 18:30 01/03/20 18:42 Inapsine 5 Mg/2 Ml IV 01/03/20 18:31 1.25 mg STAT ONE Administration Droperidol Confirm 01/03/20 18:38 Inapsine 5 Mg/2 Ml Administered 01/03/20 18:39 Dose 5 mg .ROUTE .STK-MED ONE Ketorolac Tromethamine 30 mg 01/03/20 18:30 01/03/20 18:42 Toradol 30 Mg Injection IV 01/03/20 18:31 30 mg STAT ONE Administration Ketorolac Tromethamine Confirm 01/03/20 18:38 Toradol 30 Mg Injection Administered 01/03/20 18:39 Dose 30 mg .ROUTE .STK-MED ONE Ketorolac Tromethamine 30 mg 01/03/20 19:23 01/03/20 19:32 Toradol 30 Mg Injection IV 01/03/20 19:24 30 mg STAT ONE Administration Ketorolac Tromethamine Confirm 01/03/20 19:29 Toradol 30 Mg Injection Administered 01/03/20 19:30 Dose 30 mg .ROUTE .STK-MED ONE Lorazepam 1 mg 01/03/20 19:24 01/03/20 19:33 Ativan 2 Mg/1 Ml Vial IV 01/03/20 19:25 1 mg STAT ONE Administration Lorazepam Confirm 01/03/20 19:29 Ativan 2 Mg/1 Ml Vial Administered 01/03/20 19:30 Dose 2 mg .ROUTE .STK-MED ONE Lab/Rad Data: Laboratory Result Diagrams 01/03/20 18:38 01/03/20 18:38 Laboratory Results 01/03/20 01/03/20 01/03/20 Range/Units 18:38 18:38 18:38 WBC (4.0-10.5) K/mm3 RBC (4.1-5.6) M/mm3 Hgb (12.5-18.0) gm/dl Hct (42-50) % MCV (78-100) fl MCH (26-32) pg MCHC (32-36) g/dl RDW (11.5-14.0) % Plt Count (150-450) K/mm3 MPV (7.5-11.0) fl Gran % (36.0-66.0) % Eos # (Auto) (0-0.5) Absolute Lymphs (auto) (1.0-4.6) Absolute Monos (auto) (0.0-1.3) Lymphocytes % (24.0-44.0) % Monocytes % (0.0-12.0) % Eosinophils % (0.00-5.0) % Basophils % (0.0-0.4) % Absolute Granulocytes (1.4-6.9) Basophils # (0-0.4) Sodium 143 (137-145) mmol/L Potassium 3.9 (3.5-5.1) mmol/L Chloride 107 (98-107) mmol/L Carbon Dioxide 27 (22-30) mmol/L Anion Gap 13.1 (5-15) MEQ/L BUN 12 (9-20) mg/dL Creatinine 0.82 (0.66-1.25) mg/dL Estimated GFR > 60.0 ML/MIN Glucose 99 (74-106) mg/dL Calcium 9.8 (8.4-10.2) mg/dL Total Bilirubin 0.40 (0.2-1.3) mg/dL AST 18 (17-59) U/L ALT 16 (0-50) U/L Alkaline Phosphatase 69 (38-126) U/L Serum Total Protein 7.8 (6.3-8.2) g/dL Albumin 4.5 (3.5-5.0) g/dL Lipase 32 (23-300) U/L Urine Color YELLOW (YELLOW) Urine Appearance CLEAR (CLEAR) Urine pH 7.0 (5-6) Ur Specific [place] 1.014 (1.005-1.025) Urine Protein NEGATIVE (Negative) Urine Ketones NEGATIVE (NEGATIVE) Urine Blood SMALL (0-5) Chris/ul Urine Nitrite NEGATIVE (NEGATIVE) Urine Bilirubin NEGATIVE (NEGATIVE) Urine Urobilinogen NEGATIVE (0-1) mg/dL Ur Leukocyte Esterase NEGATIVE (NEGATIVE) Urine WBC (Auto) NONE (0-5) /HPF Urine RBC (Auto) 3-5 (0-2) /HPF U Epithel Cells (Auto) NONE (FEW) /HPF Urine Bacteria (Auto) NONE SEEN (NEGATIVE) /HPF Urine Mucus (Auto) SLIGHT (NEGATIVE) /HPF Urine Culture Reflexed NO (NO) Urine Glucose NEGATIVE (NEGATIVE) mg/dL Urine Opiates Level POSITIVE (NEGATIVE) Ur Methadone NEGATIVE (NEGATIVE) Urine Barbiturates NEGATIVE (NEGATIVE) Ur Phencyclidine (PCP) NEGATIVE (NEGATIVE) Urine Amphetamine POSITIVE (NEGATIVE) U Benzodiazepine Level NEGATIVE (NEGATIVE) Urine Cocaine NEGATIVE (NEGATIVE) Urine Marijuana (THC) POSITIVE (NEGATIVE) 01/03/20 Range/Units 18:38 WBC 11.0 H (4.0-10.5) K/mm3 RBC 5.51 (4.1-5.6) M/mm3 Hgb 17.0 (12.5-18.0) gm/dl Hct 51.1 H (42-50) % MCV 92.7 (78-100) fl MCH 30.9 (26-32) pg MCHC 33.3 (32-36) g/dl RDW 13.9 (11.5-14.0) % Plt Count 281 (150-450) K/mm3 MPV 9.3 (7.5-11.0) fl Gran % 65.5 (36.0-66.0) % Eos # (Auto) 0.13 (0-0.5) Absolute Lymphs (auto) 2.94 (1.0-4.6) Absolute Monos (auto) 0.65 (0.0-1.3) Lymphocytes % 26.8 (24.0-44.0) % Monocytes % 5.9 (0.0-12.0) % Eosinophils % 1.2 (0.00-5.0) % Basophils % 0.6 (0.0-0.4) % Absolute Granulocytes 7.20 H (1.4-6.9) Basophils # 0.07 (0-0.4) Sodium (137-145) mmol/L Potassium (3.5-5.1) mmol/L Chloride (98-107) mmol/L Carbon Dioxide (22-30) mmol/L Anion Gap (5-15) MEQ/L BUN (9-20) mg/dL Creatinine (0.66-1.25) mg/dL Estimated GFR ML/MIN Glucose (74-106) mg/dL Calcium (8.4-10.2) mg/dL Total Bilirubin (0.2-1.3) mg/dL AST (17-59) U/L ALT (0-50) U/L Alkaline Phosphatase (38-126) U/L Serum Total Protein (6.3-8.2) g/dL Albumin (3.5-5.0) g/dL Lipase (23-300) U/L Urine Color (YELLOW) Urine Appearance (CLEAR) Urine pH (5-6) Ur Specific [place] (1.005-1.025) Urine Protein (Negative) Urine Ketones (NEGATIVE) Urine Blood (0-5) Chris/ul Urine Nitrite (NEGATIVE) Urine Bilirubin (NEGATIVE) Urine Urobilinogen (0-1) mg/dL Ur Leukocyte Esterase (NEGATIVE) Urine WBC (Auto) (0-5) /HPF Urine RBC (Auto) (0-2) /HPF U Epithel Cells (Auto) (FEW) /HPF Urine Bacteria (Auto) (NEGATIVE) /HPF Urine Mucus (Auto) (NEGATIVE) /HPF Urine Culture Reflexed (NO) Urine Glucose (NEGATIVE) mg/dL Urine Opiates Level (NEGATIVE) Ur Methadone (NEGATIVE) Urine Barbiturates (NEGATIVE) Ur Phencyclidine (PCP) (NEGATIVE) Urine Amphetamine (NEGATIVE) U Benzodiazepine Level (NEGATIVE) Urine Cocaine (NEGATIVE) Urine Marijuana (THC) (NEGATIVE) - Progress Progress: improved <KENNETH ACOSTA - Last Filed: 01/03/20 18:32> - Progress Progress: improved, re-examined Counseled pt/family regarding: drug and/or alcohol abuse, lab results, diagnosis , need for follow-up, rad results <JOSH AUSTIN - Last Filed: 01/03/20 20:19> - Progress Progress Note: 01/03/20 18:35 differential diagnosis includes kidney stone, compression fracture, infection, UTI, triple AAA - basic labs including: CBC, lipase, CMP, UA - insert IV for fluids, pain meds, nausea control - consider imaging: CT ab/pelvis transfer of care to Dr. Frye. He will follow up on labs, imaging, and imaging. dispo per those. (KENNETH ACOSTA) 01/03/20 18:51 pt taken over at change of shift from Dr. Acosta after discussion of pending studies and findings, intro to pt, and re=exam. 01/03/20 19:28 pt remains abd soft and nontender without peritoneal signs of distension or mass ; denies fever or N/V and denies any trauma; he di dnot have resolution of pain with first meds so will add more. 01/03/20 20:10 advised pt of kidney stones , blood in urine , and that these may not be cause for his pain and pathology may still be evolving undetected. he prefers DC to out pt f/u rather than additional w/u in ER or admit and state pain is better; he had the capacity to make this choice; (JOSH AUSTIN) <KENNETH ACOSTA - Last Filed: 01/03/20 18:32> - Departure Departure Disposition: Home Critical Care Time: No <JOSH AUSTIN - Last Filed: 01/03/20 20:19> - Departure Clinical Impression: Abdominal pain, Renal calculi, hematuria Condition: Good Referrals: ROMAN IBANEZ [Primary Care Provider] - Instructions: Acute Abdomen (Belly Pain), Adult (DC), Kidney Stones (DC), Blood in the Urine (Hematuria), Adult (DC), Marijuana Use and Addiction, Drug Abuse and Drug Addiction (DC) Additional Instructions: Although we found some kidney stones and blood in the urine and these require followup with a urologist, we have not precisely determined the cause for your pain and there still could be other problems developing , so followup with your Doctor this week as well. Strain urine for stones and save for urologist. We detected some stimulants and some MJ in your urine so we have included counseling info to think about as many people are also affected by these things in their lives and this could indicate that in your case. Return meantime if not improving or other concerns.
[2020-01-03] MEDS ORDERED: BENADRYL 50 MG/ML ONE ×2 (18:38→19:29)
[2020-01-03] MEDS ORDERED: Inapsine 5 MG/2 ML ONE (18:38)
[2020-01-03] MEDS ORDERED: TORAdol 30 mg Injection ONE ×2 (18:38→19:29)
[2020-01-03 18:42] LABS: BASOPHIL % 0.6 % (0.0-0.4); Basophil (Absolute #) 0.07 (0-0.4); Eosinophil % 1.2 % (0.00-5.0); Eosinophil (Absolute #) 0.13 (0-0.5); Hematocrit 51.1 % (42-50); Lymphocyte (Absolute #) 2.94 (1.0-4.6); Lymphocytes % 26.8 % (24.0-44.0); Mean Cell Volume 92.7 fl (78-100); Mean Corpuscular Hemoglobin 30.9 pg (26-32); Mean Corpuscular Hgb Concent. 33.3 g/dl (32-36); Mean Platelet Volume 9.3 fl (7.5-11.0); Monocyte (Absolute #) 0.65 (0.0-1.3); Monocytes % 5.9 % (0.0-12.0); Neutrophil % 65.5 % (36.0-66.0); Platelet Count 281 K/mm3 (150-450); Red Blood Count 5.51 M/mm3 (4.1-5.6); Red Cell Distribution Width 13.9 % (11.5-14.0)
[2020-01-03 18:53] LABS: ALBUMIN 4.5 g/dL (3.5-5.0); ALKALINE PHOSPHATASE 69 U/L (38-126); ANION GAP 13.1 MEQ/L (5-15); BLOOD UREA NITROGEN 12 mg/dL (9-20); CHLORIDE 107 mmol/L (98-107); Calcium 9.8 mg/dL (8.4-10.2); Carbon Dioxide 27 mmol/L (22-30); Creatinine 1 0.82 mg/dL (0.66-1.25); Glucose 99 mg/dL (74-106); LIPASE 32 U/L (23-300); Potassium 3.9 mmol/L (3.5-5.1); SGOT/AST 18 U/L (17-59); SGPT/ALT 16 U/L (0-50); SODIUM 143 mmol/L (137-145); Total Protein 7.8 g/dL (6.3-8.2)
[2020-01-03 18:57] LABS: Appearance CLEAR (CLEAR); Bilirubin NEGATIVE (NEGATIVE); Blood SMALL Ery/ul (0-5); Glucose NEGATIVE (NEGATIVE); Ketones NEGATIVE (NEGATIVE); Leukocyte Esterase NEGATIVE (NEGATIVE); Mucus SLIGHT /HPF (NEGATIVE); Nitrite NEGATIVE (NEGATIVE); Protein,Urine Dip NEGATIVE (Negative); Specific Gravity 1.014 (1.005-1.025); Urobilinogen NEGATIVE mg/dL (0-1)
[2020-01-03 18:58] LABS: Amphetamine,Urine POSITIVE (NEGATIVE); Barbiturate,Urine NEGATIVE (NEGATIVE); Benzodiazepine,Urine NEGATIVE (NEGATIVE); Cocaine,Urine NEGATIVE (NEGATIVE); Methadone,Urine NEGATIVE (NEGATIVE); Opiate,Urine POSITIVE (NEGATIVE); PCP,Urine NEGATIVE (NEGATIVE); THC,Urine POSITIVE (NEGATIVE)
[2020-01-03 19:16] LABS: Bacteria NONE SEEN /HPF (NEGATIVE)
[2020-01-03 19:24] VITALS: PULSE 72
[2020-01-03] MEDS ORDERED: Ativan 2 MG/1 ML VIAL IV ONE (19:24)
[2020-01-03] MEDS ORDERED: Ativan 2 MG/1 ML VIAL ONE (19:29)
[2020-01-03 20:14] VITALS: BP 104/80; O2SAT 97
--- NOTE | 2020-01-04 07:56 | XRAY ---
Indication: Left flank pain. Multiple contiguous axial images obtained through the abdomen and pelvis without contrast as ordered. Comparison: July 04, 2016. Lung bases demonstrates mild bibasilar dependent atelectasis. No infiltrate or effusion. Heart is not enlarged. Noncontrasted stomach and bowel loops appear nonobstructed. Normal appendix. There is now mild diffuse scattered colonic fecal debris throughout. No free fluid/air. Stable nonobstructing bilateral renal microcalculi again largest on the right measuring 4 mm. Remaining liver, gallbladder, pancreas, spleen, adrenal glands, kidneys, ureters, bladder, and aorta appear unremarkable for noncontrast exam. Again anatomic variant for duplicated IVC. Osseous structures intact. Stable small fatty umbilical hernia. Impression: 1. New mild diffuse fecal stasis without obstruction. 2. Stable nonobstructing bilateral microcalculi and small fatty umbilical hernia. 3. Remaining CT abdomen/pelvis without contrast exam is negative. Comment: Preliminary interpretation was made by [facility]. No critical discrepancy.
== END 2020-01-03 20:28 | disposition home or self-care (01) ==
LOC: ED 18:18
DX: R10.9 Unspecified abdominal pain (principal); N20.0 Calculus of kidney; R31.9 Hematuria, unspecified; M54.5 Low back pain; Z79.899 Other long term (current) drug therapy; Z79.891 Long term (current) use of opiate analgesic
CPT/HCPCS: 36000; 36415; 74176; 80053; 80307; 81001; 83690; 85025; 96374; 96375; 96376; 99284; J1200; J1885; J2060

== ENCOUNTER 2020-04-07 21:26 | Emergency (ER) | payer OTHER ==
[2020-04-07] MEDS ORDERED: TORAdol 30 mg Injection IV ONE (22:07)
[2020-04-07] MEDS ORDERED: Norflex 60 MG/2 ML IV ONE (22:07)
--- NOTE | 2020-04-07 22:10 | ERPHSYRPT ---
- History of Present Illness Time Seen by Provider: 04/07/20 21:28 Source: patient Exam Limitations: no limitations Patient Subjective Stated Complaint: pt states he has been having rt arm numbness from his shoulder to his hand in his first 3 digits sine sunday morning. pt also states he has been having chest pain for last 2 hours. states lt upper chest, non radiating, and describes as throbbing. Triage Nursing Assessment: pt c/o numbness in rt arm from shoulder to hands. pt alert and oriented x4. answers questions approp. pt ambulatory with steady gait noted. pt tachypneic. lungs cta. pt reports pain with movement of of rt arm at shoulder. states pain is at shouler blade. pt restless in bed and anxious. heart rate 110, sinus tach on monitor. Physician History: 44 years old male with history of chronic back pain, anxiety/depression presented in the ER with chief complaint of right shoulder/neck pain sudden o nset 3 days ago when he woke up, moderate to severe intensity, radiating to hand associated with tingling first 3 digits. Aggravated with movements at shoulder and palpation and partial relief with being still. Patient denies any fall or trauma. Neck pain is more on the right side with some burning sensation. Because of the pain he feels weakness in the right upper extremity. Patient ran out of pain medications 2 days ago and is unable to control his pain. Patient endorses that he slept for almost 2 days on his right arm before he woke up 3 days ago. Denies any use of alcohol or drugs. Is also complaining of chest pain substernal this morning and 2 hours ago which is mild in intensity, dull aching in nature, aggravated with movements. Denies any associated palpitations or shortness of breath. Denies any history of coronary artery disease. Timing/Duration: day(s) (3), sudden, worse Severity: moderate Modifying Factors: Improves With: immobilization, movement, rest Associated Symptoms: chest pain Allergies/Adverse Reactions: No Known Drug Allergies Allergy (Verified 04/07/20 22:02) Home Medications: Duloxetine HCl 60 mg PO BID 11/07/19 [History] Hydrocodone/Acetaminophen [Hydrocodone-Acetamin 7.5-325] 1 ea PO UD 11/07/19 [History] Famotidine 20 mg [Pepcid 20 MG] 20 mg PO DAILY 11/16/19 [History] clonazePAM [Clonazepam] 0.5 mg PO BID 11/16/19 [History] Hx Tetanus, Diphtheria Vaccination/Date Given: Yes Hx Influenza Vaccination/Date Given: No Hx Pneumococcal Vaccination/Date Given: No Immunizations Up to Date: Yes Travel Risk - International Travel Have you traveled outside of the country in past 3 weeks: No - Coronavirus Screening Are you exhibiting any of the following symptoms?: No Close contact with a COVID-19 positive Pt in past 14-21 Days: No - Review of Systems Constitutional: No Symptoms Eyes: No Symptoms Ears, Nose, & Throat: No Symptoms Respiratory: No Symptoms Cardiac: Chest Pain Abdominal/Gastrointestinal: No Symptoms Musculoskeletal: Neck Pain, Joint Pain, Myalgias Skin: No Symptoms Neurological: Sensory Changes Psychological: No Symptoms Endocrine: No Symptoms Hematologic/Lymphatic: No Symptoms Immunological/Allergic: No Symptoms - Past Medical History Pertinent Past Medical History: Yes Neurological History: No Pertinent History ENT History: No Pertinent History Cardiac History: No Pertinent History Respiratory History: No Pertinent History Endocrine Medical History: No Pertinent History Musculoskeletal History: No Pertinent History, Other GI Medical History: Hepatitis History: No Pertinent History Psycho-Social History: Anxiety, Depression Male Reproductive Disorders: No Pertinent History Other Medical History: back problems,. treated for hepatitis c and pt states cured - Past Surgical History Past Surgical History: No Neuro Surgical History: No Pertinent History Cardiac: No Pertinent History Respiratory: No Pertinent History Gastrointestinal: No Pertinent History Genitourinary: No Pertinent History Musculoskeletal: No Pertinent History Male Surgical History: No Pertinent History - Social History Smoking Status: Current every day smoker How long have you smoked: YRS Exposure to second hand smoke: Yes Alcohol Use: Socially Drug Use: marijuana, methamphetamines Patient Lives Alone: Yes Significant Family History: no pertinent family hx - Nursing Vital Signs Nursing Vital Signs: Initial Vital Signs Temperature 98.0 F 04/07/20 21:30 Pulse Rate 110 H 04/07/20 21:30 Respiratory Rate 22 04/07/20 21:30 Blood Pressure 164/115 04/07/20 21:30 O2 Sat by Pulse Oximetry 100 04/07/20 21:30 Pain Scale Pain Intensity 0 - Physical Exam General Appearance: no apparent distress, alert Eye Exam: PERRL/EOMI, eyes nml inspection Ears, Nose, Throat Exam: normal ENT inspection, TMs normal, pharynx normal Neck Exam: normal inspection, supple, full range of motion, other (right lateral neck tenderness), No midline tenderness Respiratory Exam: normal breath sounds, lungs clear, No chest tenderness Cardiovascular Exam: regular rate/rhythm, normal heart sounds Back Exam: normal inspection, normal range of motion, No CVA tenderness Extremity Exam: limited range of motion (right shoulder), tenderness Neurologic Exam: alert, oriented x 3, cooperative, 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, normal mood/affect, nml cerebellar function, nml station & gait Skin Exam: normal color SpO2 Interpretation: normal SpO2: 100 O2 Delivery: Room Air - Course Nursing assessment & vital signs reviewed: Yes EKG Interpreted by Me: RATE (102), Sinus Tach, NORMAL AXIS, NORMAL INTERVALS, NORMAL QRS Ordered Tests: Active Orders 24 hr Category Date Time Status Laminate Floor Installer STAT Care 04/07/20 21:47 Active EKG-ER Only STAT Care 04/07/20 21:47 Active IV Insertion STAT Care 04/07/20 21:47 Active CERVICAL SPINE WO CONTRAST [CT] Stat Exams 04/07/20 22:06 Taken CHEST 1 VIEW (PORTABLE) Stat Exams 04/07/20 22:07 Taken SHOULDER Stat Exams 04/07/20 23:39 Taken CBC W DIFF Stat Lab 04/07/20 22:40 Completed CMP Stat Lab 04/07/20 22:40 Completed ETHYL ALCOHOL Stat Lab 04/07/20 22:40 Completed TROPONIN Q3H Lab 04/07/20 22:40 Completed TROPONIN Q3H Lab 04/08/20 01:15 Ordered TROPONIN Q3H Lab 04/08/20 04:15 Ordered TROPONIN Q3H Lab 04/08/20 07:15 Ordered TROPONIN Q3H Lab 04/08/20 10:15 Ordered Urine Triage Profile Stat Lab 04/07/20 22:20 Completed Medication Summary Generic Name Dose Route Start Last Admin Trade Name Freq PRN Reason Stop Dose Admin Aspirin 324 mg 04/07/20 22:30 04/07/20 22:14 Ecotrin 81 Mg PO 05/07/20 22:29 Not Given 1XONLY ISACC Discontinued Medications Generic Name Dose Route Start Last Admin Trade Name Freq PRN Reason Stop Dose Admin Aspirin 324 mg 04/07/20 22:15 04/07/20 22:17 Baby Aspirin 81 Mg Chew PO 04/07/20 22:16 324 mg STAT ONE Administration Aspirin Confirm 04/07/20 22:16 Baby Aspirin 81 Mg Chew Administered 04/07/20 22:17 Dose 324 mg .ROUTE .STK-MED ONE Ketorolac Tromethamine 30 mg 04/07/20 22:07 04/07/20 22:17 Toradol 30 Mg Injection IV 04/07/20 22:08 30 mg STAT ONE Administration Ketorolac Tromethamine Confirm 04/07/20 22:16 Toradol 30 Mg Injection Administered 04/07/20 22:17 Dose 30 mg .ROUTE .STK-MED ONE Orphenadrine Citrate 60 mg 04/07/20 22:07 04/07/20 22:14 Norflex 60 Mg/2 Ml IV 04/07/20 22:08 Not Given STAT ONE Orphenadrine Citrate 60 mg 04/07/20 22:15 04/07/20 22:17 Norflex 60 Mg/2 Ml IM 04/07/20 22:16 60 mg STAT ONE Administration Orphenadrine Citrate Confirm 04/07/20 22:16 Norflex 60 Mg/2 Ml Administered 04/07/20 22:17 Dose 60 mg .ROUTE .STK-MED ONE Lab/Rad Data: Laboratory Result Diagrams 04/07/20 22:40 04/07/20 22:40 Laboratory Results 04/07/20 04/07/20 04/07/20 Range/Units 22:40 22:40 22:40 WBC (4.0-10.5) K/mm3 RBC (4.1-5.6) M/mm3 Hgb (12.5-18.0) gm/dl Hct (42-50) % MCV (78-100) fl MCH (26-32) pg MCHC (32-36) g/dl RDW (11.5-14.0) % Plt Count (150-450) K/mm3 MPV (7.5-11.0) fl Gran % (36.0-66.0) % Eos # (Auto) (0-0.5) Absolute Lymphs (auto) (1.0-4.6) Absolute Monos (auto) (0.0-1.3) Lymphocytes % (24.0-44.0) % Monocytes % (0.0-12.0) % Eosinophils % (0.00-5.0) % Basophils % (0.0-0.4) % Absolute Granulocytes (1.4-6.9) Basophils # (0-0.4) Sodium 139 (137-145) mmol/L Potassium 3.7 (3.5-5.1) mmol/L Chloride 105 (98-107) mmol/L Carbon Dioxide 24 (22-30) mmol/L Anion Gap 14.4 (5-15) MEQ/L BUN 11 (9-20) mg/dL Creatinine 0.91 (0.66-1.25) mg/dL Estimated GFR > 60.0 ML/MIN Glucose 99 (74-106) mg/dL Calcium 9.4 (8.4-10.2) mg/dL Total Bilirubin 0.40 (0.2-1.3) mg/dL AST 20 (17-59) U/L ALT 12 (0-50) U/L Alkaline Phosphatase 76 (38-126) U/L Troponin I < 0.012 (0.000-0.034) ng/mL Serum Total Protein 7.6 (6.3-8.2) g/dL Albumin 4.4 (3.5-5.0) g/dL Urine Opiates Level (NEGATIVE) Ur Methadone (NEGATIVE) Urine Barbiturates (NEGATIVE) Ur Phencyclidine (PCP) (NEGATIVE) Urine Amphetamine (NEGATIVE) U Benzodiazepine Level (NEGATIVE) Urine Cocaine (NEGATIVE) Urine Marijuana (THC) (NEGATIVE) Ethyl Alcohol < 10 (0-10) mg/dL 04/07/20 04/07/20 Range/Units 22:40 22:20 WBC 9.6 (4.0-10.5) K/mm3 RBC 5.85 H (4.1-5.6) M/mm3 Hgb 17.8 (12.5-18.0) gm/dl Hct 53.5 H (42-50) % MCV 91.5 (78-100) fl MCH 30.4 (26-32) pg MCHC 33.3 (32-36) g/dl RDW 13.3 (11.5-14.0) % Plt Count 267 (150-450) K/mm3 MPV 9.7 (7.5-11.0) fl Gran % 61.5 (36.0-66.0) % Eos # (Auto) 0.11 (0-0.5) Absolute Lymphs (auto) 2.98 (1.0-4.6) Absolute Monos (auto) 0.58 (0.0-1.3) Lymphocytes % 30.9 (24.0-44.0) % Monocytes % 6.0 (0.0-12.0) % Eosinophils % 1.1 (0.00-5.0) % Basophils % 0.5 (0.0-0.4) % Absolute Granulocytes 5.92 (1.4-6.9) Basophils # 0.05 (0-0.4) Sodium (137-145) mmol/L Potassium (3.5-5.1) mmol/L Chloride (98-107) mmol/L Carbon Dioxide (22-30) mmol/L Anion Gap (5-15) MEQ/L BUN (9-20) mg/dL Creatinine (0.66-1.25) mg/dL Estimated GFR ML/MIN Glucose (74-106) mg/dL Calcium (8.4-10.2) mg/dL Total Bilirubin (0.2-1.3) mg/dL AST (17-59) U/L ALT (0-50) U/L Alkaline Phosphatase (38-126) U/L Troponin I (0.000-0.034) ng/mL Serum Total Protein (6.3-8.2) g/dL Albumin (3.5-5.0) g/dL Urine Opiates Level POSITIVE (NEGATIVE) Ur Methadone NEGATIVE (NEGATIVE) Urine Barbiturates NEGATIVE (NEGATIVE) Ur Phencyclidine (PCP) NEGATIVE (NEGATIVE) Urine Amphetamine NEGATIVE (NEGATIVE) U Benzodiazepine Level NEGATIVE (NEGATIVE) Urine Cocaine NEGATIVE (NEGATIVE) Urine Marijuana (THC) NEGATIVE (NEGATIVE) Ethyl Alcohol (0-10) mg/dL - Progress Progress: improved, pain not gone completely, re-examined Progress Note: 44 years old is evaluated for neck shoulder and upper extremity pain with some tingling/numbness. Is given Toradol and Norflex, on reevaluation pain is better but not completely improved. Chest pain is reproducible, EKG did not show any acute ischemic changes. Negative troponin. Chest x-ray negative for any acute cardiopulmonary findings. Grossly unremarkable chemistries and white count. I believe patient's pain is atypical, musculoskeletal. His arm pain is more of a radiculopathy from cervical spine. I have obtained CT cervical spine showed degenerative changes with foraminal narrowing distant with his symptoms. Recommended outpatient follow-up and NSAIDs along with muscle relaxant and meena nue with pain medication which he is taking chronically. Do not think patient needs CT head or having any stroke symptoms. Discussed signs symptoms of worsening needing return to ER which he seems understanding. Stable for discharge. 04/07/20 23:56 Counseled pt/family regarding: lab results, diagnosis, need for follow-up, rad results - Departure Departure Disposition: Home Clinical Impression: Cervicalgia, Atypical chest pain Condition: Stable Critical Care Time: No Referrals: ROMAN IBANEZ [Primary Care Provider] - (1-2 for reevaluation.) HI SÁNCHEZ [NON-STAFF PHY W/O PRIVILEGES] - (Call in the morning for appo intment for reevaluation) Instructions: Chest Pain That Is Not Caused by the Heart (DC), Generalized Neck Pain (DC) Additional Instructions: Take ibuprofen and Robaxin along with pain medications which you have at home. Follow-up with primary care and neurosurgery for reevaluation. Return to ER for worsening pain, numbness or if develop weakness in the upper extremity. Prescriptions: Ibuprofen 600 mg PO Q6HPRN PRN 10 Days #20 tablet PRN Reason: Pain Methocarbamol [Robaxin-750] 750 mg PO Q6-8HPRN PRN #30 tablet PRN Reason: Pain
[2020-04-07] MEDS ORDERED: Norflex 60 MG/2 ML IM ONE (22:15)
[2020-04-07] MEDS ORDERED: BABY ASPIRIN 81 MG CHEW PO ONE (22:15)
[2020-04-07] MEDS ORDERED: BABY ASPIRIN 81 MG CHEW ONE (22:16)
[2020-04-07] MEDS ORDERED: Norflex 60 MG/2 ML ONE (22:16)
[2020-04-07] MEDS ORDERED: TORAdol 30 mg Injection ONE (22:16)
[2020-04-07] MEDS ORDERED: ECOTRIN 81 MG PO SCH (22:30)
[2020-04-07 22:46] LABS: Amphetamine,Urine NEGATIVE (NEGATIVE); Barbiturate,Urine NEGATIVE (NEGATIVE); Benzodiazepine,Urine NEGATIVE (NEGATIVE); Cocaine,Urine NEGATIVE (NEGATIVE); Methadone,Urine NEGATIVE (NEGATIVE); Opiate,Urine POSITIVE (NEGATIVE); PCP,Urine NEGATIVE (NEGATIVE); THC,Urine NEGATIVE (NEGATIVE)
[2020-04-07 22:52] LABS: Absolute Neutrophil Ct (ANC) 5.92 (1.4-6.9); BASOPHIL % 0.5 % (0.0-0.4); Basophil (Absolute #) 0.05 (0-0.4); Eosinophil % 1.1 % (0.00-5.0); Eosinophil (Absolute #) 0.11 (0-0.5); Hematocrit 53.5 % (42-50); Hemoglobin 17.8 gm/dl (12.5-18.0); Lymphocyte (Absolute #) 2.98 (1.0-4.6); Lymphocytes % 30.9 % (24.0-44.0); Mean Cell Volume 91.5 fl (78-100); Mean Corpuscular Hemoglobin 30.4 pg (26-32); Mean Corpuscular Hgb Concent. 33.3 g/dl (32-36); Mean Platelet Volume 9.7 fl (7.5-11.0); Monocyte (Absolute #) 0.58 (0.0-1.3); Neutrophil % 61.5 % (36.0-66.0); Platelet Count 267 K/mm3 (150-450); Red Blood Count 5.85 M/mm3 (4.1-5.6); Red Cell Distribution Width 13.3 % (11.5-14.0); White Blood Count 9.6 K/mm3 (4.0-10.5)
[2020-04-07 23:08] LABS: ALBUMIN 4.4 g/dL (3.5-5.0); ALKALINE PHOSPHATASE 76 U/L (38-126); ANION GAP 14.4 MEQ/L (5-15); BLOOD UREA NITROGEN 11 mg/dL (9-20); CHLORIDE 105 mmol/L (98-107); Calcium 9.4 mg/dL (8.4-10.2); Carbon Dioxide 24 mmol/L (22-30); Creatinine 1 0.91 mg/dL (0.66-1.25); Glucose 99 mg/dL (74-106); Potassium 3.7 mmol/L (3.5-5.1); SGOT/AST 20 U/L (17-59); SGPT/ALT 12 U/L (0-50); SODIUM 139 mmol/L (137-145); Total Protein 7.6 g/dL (6.3-8.2)
[2020-04-08 00:04] VITALS: BP 144/99; PULSE 76; O2SAT 98
--- NOTE | 2020-04-08 10:28 | XRAY ---
Exam: PA chest film from 04/07/2020. Comparison: AP upright portable chest film from 11/07/2019. Indication: Chest pain. Findings: The transverse heart size is normal. EKG leads are seen in place. The lungs are well inflated. The david and mediastinal structures appear unremarkable. No air space infiltrates, vascular congestion, pneumothorax, or pleural fluid is seen. Minimal lower thoracic levoscoliosis is seen. No acute osseous process is seen. Impression: 1. No acute cardiopulmonary disease is seen, no change from 11/07/2019.
--- NOTE | 2020-04-08 10:32 | XRAY ---
Exam: 3 view (5 films) of the right shoulder from 04/07/2020. Comparison: None. Indication: 44-year-old male with right shoulder pain and numbness for 2 days, no known injury. Findings: AP internal rotation, AP external rotation, and 3 attempted Y views of the right shoulder were obtained. No acute right shoulder fracture or dislocation is seen. Both the glenohumeral joint and acromioclavicular joint appear essentially unremarkable. No other focal bone lesion is seen. No soft tissue calcifications are seen adjacent to the right humeral head. The visualized right upper lung field appears clear. The clavicle is intact. Impression: 1. No acute right shoulder fracture or dislocation is seen. No other significant bone or joint abnormality is evident.
--- NOTE | 2020-04-08 11:01 | XRAY ---
Exam: CT of the cervical spine without IV contrast from 04/07/2020. CTDI: 48.14 mGy Comparison: CT of the cervical spine/neck from 05/27/2009. Indication: 44-year-old male with right arm numbness/pain 2 days, no known injury. Technique: Multiple axial non-IV contrast images were obtained through the cervical spine. Reconstructed coronal and sagittal images were created and reviewed. Findings: No acute cervical spine fracture, AP subluxation, or prevertebral soft tissue swelling is seen. There is no focal bone destruction. Mild degenerative changes seen at the preodontoid space. There is mild narrowing of the C5-C6 interspace height associated with mild anterior and posterior vertebral endplate spurring indicating mild degenerative disc disease. There is moderate narrowing of the C6-C7 interspace height which is also associated with mild anterior and posterior vertebral endplate spurring indicating moderate degenerative disc disease at this level. Moderate sized posterior vertebral endplate spurring is seen centered slightly to the right of midline at C6-C7 on the axial images. I also note mild hypertrophic spurring and degenerative change bilaterally involving the C5-C6 and C6-C7 uncovertebral joints. This is slightly more pronounced at C6-C7 than C5-C6. No cervical ribs are seen. There is increased CT noise at and inferior to the C5-C6 level due to the patient's shoulders being in this projection. There is mild/moderate narrowing of the C5-C6 neural foramen bilaterally. There is also mild/moderate narrowing of the left C6-C7 neural foramen. The remainder of the neural foramen appear patent. There is mild diffuse effacement of the anterior margin of the thecal sac at C5-C6 and C6-C7. The lung apices appear clear. No gross abnormality of the thyroid gland is seen. The soft tissues of the neck reveal no abnormal cervical lymphadenopathy. Impression: 1. Mild degenerative disc disease/degenerative joint disease at C5-C6 and moderate degenerative disc disease/degenerative joint disease at C6-C7 are seen. The anterior margin of the C5-C6 and C6-C7 thecal sacs are mildly effaced. There is mild/moderate narrowing of both C5-C6 neural foramen and mild/moderate narrowing of the left C6-C7 neural foramen. 2. No acute cervical spine fracture, AP subluxation, or prevertebral soft tissue swelling is seen.
== END 2020-04-08 00:06 | disposition home or self-care (01) ==
LOC: ED 21:26
DX: M54.2 Cervicalgia (principal); R07.89 Other chest pain; M54.9 Dorsalgia, unspecified; G89.29 Other chronic pain; B19.20 Unspecified viral hepatitis C without hepatic coma; F41.9 Anxiety disorder, unspecified; F32.9 Major depressive disorder, single episode, unspecified; Z72.0 Tobacco use; F12.90 Cannabis use, unspecified, uncomplicated; F15.90 Other stimulant use, unspecified, uncomplicated
CPT/HCPCS: 36000; 36415; 71045; 72125; 73030; 80053; 80307; 84484; 85025; 93005; 93041; 96372; 96374; 99284; G0480; J1885; J2360; A9270-GY

== ENCOUNTER 2020-04-20 19:55 | Emergency (ER) | payer OTHER ==
[2020-04-20 20:24] VITALS: O2SAT 98
[2020-04-20] MEDS ORDERED: TORAdol 30 mg Injection ONE (21:04)
[2020-04-20] MEDS: TORAdol 30 mg Injection IM ONE (21:05)
--- NOTE | 2020-04-20 21:06 | ERPHSYRPT ---
- History of Present Illness Source: patient Patient Subjective Stated Complaint: Two weeks ago, patient states that he came to [facility] ER with the same shoulder arm pain and numbness in pointer and middle finger. The patient states that he "woke up like that one morning". The patient states that he was told by [facility] ER doctor that his arm was discloated and given a number for a surgeon and followed up with his primary care doctor who told him that "the ER doctor was lying" The patient has been in constant pain since and decided that he needed to come back for another opinion. Triage Nursing Assessment: Patient is ambulatory, alert and oriented, complaining of pain 10/10, in obvious discomfort, otherwise and negative assessment. Physician History: 44 yo wm w R shoulder x 2wks. Pt denies injury and states pain 10 on scale. He states that he has been to the ER x1 and also seen his his PCP. Occurred: other (2wks) Method of Injury: unknown Quality: constant Severity of Pain-Max: severe Severity of Pain-Current: severe Extremities Pain Location: shoulder: right Modifying Factors: Improves With: movement Associated Symptoms: No back pain, No chills, No chest discomfort, No chest pain, No dyspnea, No fever, No jaw pain, No nausea, No neck pain, No sweating, N o short of breath, No vomiting Allergies/Adverse Reactions: No Known Drug Allergies Allergy (Verified 04/20/20 20:26) Home Medications: Duloxetine HCl 60 mg PO BID 11/07/19 [History] Famotidine 20 mg [Pepcid 20 MG] 20 mg PO DAILY 11/16/19 [History] clonazePAM [Clonazepam] 0.5 mg PO BID 11/16/19 [History] Hx Tetanus, Diphtheria Vaccination/Date Given: Yes Hx Influenza Vaccination/Date Given: Yes (fall 2018) Hx Pneumococcal Vaccination/Date Given: No Immunizations Up to Date: Yes Travel Risk - International Travel Have you traveled outside of the country in past 3 weeks: No - Coronavirus Screening Close contact with a COVID-19 positive Pt in past 14-21 Days: No - Review of Systems Constitutional: No Symptoms Eyes: No Symptoms Ears, Nose, & Throat: No Symptoms Respiratory: No Symptoms Cardiac: No Symptoms Abdominal/Gastrointestinal: No Symptoms Skin: No Symptoms Neurological: No Symptoms Psychological: No Symptoms Endocrine: No Symptoms Hematologic/Lymphatic: No Symptoms Immunological/Allergic: No Symptoms - Past Medical History Pertinent Past Medical History: Yes Neurological History: No Pertinent History ENT History: No Pertinent History Cardiac History: No Pertinent History Respiratory History: No Pertinent History Endocrine Medical History: No Pertinent History Musculoskeletal History: No Pertinent History, Other GI Medical History: Hepatitis History: No Pertinent History Psycho-Social History: Anxiety, Depression Male Reproductive Disorders: No Pertinent History Other Medical History: back problems, shoulder dislocation,. treated for hepatitis c and pt states cured - Past Surgical History Past Surgical History: No Neuro Surgical History: No Pertinent History Cardiac: No Pertinent History Respiratory: No Pertinent History Gastrointestinal: No Pertinent History Genitourinary: No Pertinent History Musculoskeletal: No Pertinent History Male Surgical History: No Pertinent History - Social History Smoking Status: Current every day smoker How long have you smoked: 10 years Exposure to second hand smoke: Yes Alcohol Use: Socially Drug Use: marijuana Patient Lives Alone: Yes Significant Family History: no pertinent family hx - Nursing Vital Signs Nursing Vital Signs: Initial Vital Signs Temperature 98.8 F 04/20/20 20:11 Pulse Rate 95 H 04/20/20 20:11 Respiratory Rate 20 04/20/20 20:11 Blood Pressure 148/84 04/20/20 20:11 O2 Sat by Pulse Oximetry 98 04/20/20 20:11 Pain Scale Pain Intensity 10 - Physical Exam General Appearance: no apparent distress (In pain) Eyes, Ears, Nose, Throat Exam: normal ENT inspection Neck Exam: normal inspection, non-tender, full range of motion, No Brudzinski, No Kernig's Cardiovascular/Respiratory Exam: normal breath sounds, regular rate/rhythm, heart sounds normal, no respiratory distress Abdominal Exam: non-tender, soft Back Exam: normal inspection, normal range of motion Shoulder Exam: bone tenderness (R shoulder ttp posteriorly/Pain w abduction and external rotation/good radial pulse, distal sensation, and capillary return), No deformity Elbow/Forearm Exam: normal inspection, non-tender, no evidence of injury, normal ROM Wrist Exam: normal inspection, non-tender, no evidence of injury, normal ROM Hand Exam: normal inspection, non-tender, no evidence of injury, normal ROM DTR - Upper Extremity Exam: bicep (R): 2+, bicep (L): 2+ Neuro/Tendon Exam: normal sensation, normal motor functions, normal tendon functions Mental Status Exam: alert, oriented x 3, cooperative Skin Exam: normal color, warm, dry SpO2 Interpretation: normal SpO2: 98 O2 Delivery: Room Air - Course Nursing assessment & vital signs reviewed: Yes Ordered Tests: Active Orders 24 hr Category Date Time Status SHOULDER Stat Exams 04/20/20 21:18 Taken Medication Summary Discontinued Medications Generic Name Dose Route Start Last Admin Trade Name Prakashq PRN Reason Stop Dose Admin Ketorolac Tromethamine 60 mg 04/20/20 21:02 04/20/20 21:05 Toradol 30 Mg Injection IM 04/20/20 21:03 60 mg STAT ONE Administration Ketorolac Tromethamine Confirm 04/20/20 21:04 Toradol 30 Mg Injection Administered 04/20/20 21:05 Dose 60 mg .ROUTE .STOff & Away-MED ONE - Progress Progress: improved Progress Note: 04/20/20 21:23 60mg IM torado w improvement Counseled pt/family regarding: need for follow-up, rad results - Departure Departure Disposition: Home Clinical Impression: Shoulder pain Condition: Stable Critical Care Time: No Referrals: ROMAN IBANEZ [Primary Care Provider] - BLAYNE - CHANCE HERNÁNDEZ NP [NON-STAFF PHY W/O PRIVILEGES] - Instructions: Shoulder Sprain (DC) Additional Instructions: Heat to shoulder Motrin/tylenol for pain Follow up with your family MD or orthopedic clinic
[2020-04-20 21:35] VITALS: BP 144/93; PULSE 88
--- NOTE | 2020-04-21 08:37 | XRAY ---
Indication: Pain. Comparison: April 07, 2020. 3 view right shoulder obtained. Again no bony, articular, or soft tissue abnormalities.
== END 2020-04-20 21:35 | disposition home or self-care (01) ==
LOC: ED 19:55
DX: M25.519 Pain in unspecified shoulder (principal)
CPT/HCPCS: 73030; 96372; 99284; J1885

== ENCOUNTER 2024-04-01 11:53 | Emergency (ER) | payer OTHER ==
--- NOTE | 2024-04-01 12:10 | ERPHSYRPT ---
- History of Present Illness Time Seen by Provider: 04/01/24 12:09 Source: patient Exam Limitations: other Physician History: 48-year-old male presents to our ED for evaluation of hematuria. Symptoms began today. Patient states he experiences a dysuria at the tip of his penis. Otherwise painless. No trauma no fever. No history of the same. Patient states he is sexually active with 1 partner. He states STI risk is low. No abdominal pain. No nausea vomiting or diaphoresis. No chest pain or shortness of breath. Patient otherwise feels well. He voices no other complaints or concerns at this time. Portions of this note were created with voice recognition technology. There may be grammatical, spelling, punctuation or sound alike errors Timing/Duration: today Severity: moderate Allergies/Adverse Reactions: No Known Drug Allergies Allergy (Verified 04/01/24 12:04) Home Medications: Duloxetine HCl 60 mg PO BID 11/07/19 [History] Famotidine 20 mg [Pepcid 20 MG] 20 mg PO BID 11/16/19 [History] clonazePAM [Clonazepam] 0.5 mg PO DAILY 11/16/19 [History] Amoxicillin/Potassium Clav [Amox-Clav 500-125 mg Tablet] 1 each PO TID 04/01/24 [History] Atorvastatin Calcium 10 mg PO DAILY 04/01/24 [History] Benazepril HCl 10 mg PO DAILY 04/01/24 [History] Fluticasone Propionate 2 spray IH DAILY 04/01/24 [History] Hydrocodone/Acetaminophen [Hydrocodone-Acetamin 5-325 mg] 1 each PO BID PRN 04/01/24 [History] Olanzapine 5 mg [zyPREXA 5MG TABLET] 5 mg PO HS 04/01/24 [History] buPROPion HCL [Bupropion HCl] 75 mg PO BID 04/01/24 [History] Hx Tetanus, Diphtheria Vaccination/Date Given: Yes Hx Influenza Vaccination/Date Given: Yes (fall 2018) Hx Pneumococcal Vaccination/Date Given: No - Past Medical History Pertinent Past Medical History: Yes Neurological History: No Pertinent History ENT History: No Pertinent History Cardiac History: No Pertinent History Respiratory History: No Pertinent History Endocrine Medical History: No Pertinent History Musculoskeletal History: No Pertinent History, Other GI Medical History: Hepatitis History: No Pertinent History Psycho-Social History: Anxiety, Depression Male Reproductive Disorders: No Pertinent History Other Medical History: back problems,. treated for hepatitis c and pt states cured - Past Surgical History Past Surgical History: No Neuro Surgical History: No Pertinent History Cardiac: No Pertinent History Respiratory: No Pertinent History Gastrointestinal: No Pertinent History Genitourinary: No Pertinent History Musculoskeletal: No Pertinent History Male Surgical History: No Pertinent History Significant Family History: no pertinent family hx - Social History Smoking Status: Current every day smoker How long have you smoked: 10 years Exposure to second hand smoke: Yes Alcohol Use: Socially Drug Use: marijuana, methamphetamines Patient Lives Alone: Yes - Nursing Vital Signs Nursing Vital Signs: Initial Vital Signs Pulse Rate 88 04/01/24 12:01 Blood Pressure 130/84 04/01/24 12:01 O2 Sat by Pulse Oximetry 98 04/01/24 12:01 Pain Scale Pain Intensity 0 Ordered Tests: Active Orders 24 hr Category Date Time Status IV Insertion STAT Care 04/01/24 12:07 Active ABDOMEN AND PELVIS W/0 CONTRAS [CT] Stat Exams 04/01/24 12:07 Completed CBC W DIFF Stat Lab 04/01/24 12:15 Completed CMP Stat Lab 04/01/24 12:15 Completed CULTURE,URINE Stat Lab 04/01/24 12:12 Received UA W/RFX UR CULTURE Stat Lab 04/01/24 12:12 Completed Medication Summary Discontinued Medications Generic Name Dose Route Start Last Admin Trade Name Prakashq PRN Reason Stop Dose Admin Sodium Chloride 1,000 mls @ 999 mls/hr 04/01/24 12:07 04/01/24 13:33 Sodium Chloride 0.9% 1000 Ml IV 04/01/24 13:07 Infused .Q1H1M STA Infusion Sodium Chloride Confirm 04/01/24 12:19 Sodium Chloride 0.9% 1000 Ml Administered 04/01/24 12:20 Dose 1,000 mls @ ud .ROUTE .STK-MED ONE Lab/Rad Data: Laboratory Result Diagrams 04/01/24 12:15 04/01/24 12:15 Laboratory Results 04/01/24 04/01/24 04/01/24 Range/Units 12:23 12:15 12:15 WBC 8.4 (4.23-9.07) x10^3/uL RBC 4.97 (4.63-6.08) x10^6/uL Hgb 14.9 (13.7-17.5) g/dL Hct 45.0 (40.1-51.0) % MCV 90.5 (79.0-92.2) fL MCH 30.0 (25.7-32.2) pg MCHC 33.1 (32.3-36.5) g/dL RDW 12.8 (11.6-14.4) % Plt Count 322 (163-337) x10^3/uL MPV 8.3 L (9.4-12.4) fL Gran % 45.6 (34.0-67.9) % Immature Gran % (Auto) 0.4 (0.001-0.429) % Nucleat RBC Rel Count 0.0 (0.00-0.2) % Eos # (Auto) 0.13 (0.04-0.54) x10^3/uL Immature Gran # (Auto) 0.03 (0.001-0.031) x10^3u/L Absolute Lymphs (auto) 3.87 H (1.32-3.57) x10^3/uL Absolute Monos (auto) 0.48 (0.30-0.82) x10^3/uL Absolute Nucleated RBC 0.00 (0.00-0.012) x10^3u/L Lymphocytes % 46.1 (21.8-53.1) % Monocytes % 5.7 (5.3-12.2) % Eosinophils % 1.5 (0.8-7.0) % Basophils % 0.7 (0.2-1.2) % Absolute Granulocytes 3.83 (1.78-5.38) x10^3/uL Basophils # 0.06 (0.01-0.08) x10^3/uL Sodium 142 (135-145) mmol/L Potassium 4.0 (3.5-5.1) mmol/L Chloride 103 (98-107) mmol/L Carbon Dioxide 30 (22-30) mmol/L Anion Gap 13.3 (5-15) MEQ/L BUN 12 (9-20) mg/dL Creatinine 1.12 (0.66-1.25) mg/dL Estimated GFR 81.5 ML/MIN Glucose 132 H (74-106) mg/dL Calcium 10.1 (8.4-10.2) mg/dL Total Bilirubin 0.40 (0.2-1.3) mg/dL AST 23 (17-59) U/L ALT 32 (0-50) U/L Alkaline Phosphatase 61 (38-126) U/L Serum Total Protein 7.3 (6.3-8.2) g/dL Albumin 4.4 (3.5-5.0) g/dL Urine Color (Yellow) Urine Appearance (Clear) Urine pH (4.6-8.0) Ur Specific [place] (1.005-1.030) Urine Protein (Negative) Urine Glucose (UA) (Negative) mg/dL Urine Ketones (Negative) Urine Blood (Negative) Urine Nitrite (Negative) Urine Bilirubin (Negative) Urine Urobilinogen (0.2) mg/dL Ur Leukocyte Esterase (Negative) U Hyaline Cast (Auto) (0-2) /LPF Urine Microscopic RBC (0-5) /HPF Urine Microscopic WBC (0-5) /HPF Ur Epithelial Cells (None Seen) /HPF Urine Bacteria (None Seen) /HPF Urine Culture Reflexed (NO) Chlamydia DNA Probe NOT DETECTED (NEGATIVE) N.gonorrhoeae DNA Probe NOT DETECTED (NEGATIVE) 04/01/24 Range/Units 12:12 WBC (4.23-9.07) x10^3/uL RBC (4.63-6.08) x10^6/uL Hgb (13.7-17.5) g/dL Hct (40.1-51.0) % MCV (79.0-92.2) fL MCH (25.7-32.2) pg MCHC (32.3-36.5) g/dL RDW (11.6-14.4) % Plt Count (163-337) x10^3/uL MPV (9.4-12.4) fL Gran % (34.0-67.9) % Immature Gran % (Auto) (0.001-0.429) % Nucleat RBC Rel Count (0.00-0.2) % Eos # (Auto) (0.04-0.54) x10^3/uL Immature Gran # (Auto) (0.001-0.031) x10^3u/L Absolute Lymphs (auto) (1.32-3.57) x10^3/uL Absolute Monos (auto) (0.30-0.82) x10^3/uL Absolute Nucleated RBC (0.00-0.012) x10^3u/L Lymphocytes % (21.8-53.1) % Monocytes % (5.3-12.2) % Eosinophils % (0.8-7.0) % Basophils % (0.2-1.2) % Absolute Granulocytes (1.78-5.38) x10^3/uL Basophils # (0.01-0.08) x10^3/uL Sodium (135-145) mmol/L Potassium (3.5-5.1) mmol/L Chloride (98-107) mmol/L Carbon Dioxide (22-30) mmol/L Anion Gap (5-15) MEQ/L BUN (9-20) mg/dL Creatinine (0.66-1.25) mg/dL Estimated GFR ML/MIN Glucose (74-106) mg/dL Calcium (8.4-10.2) mg/dL Total Bilirubin (0.2-1.3) mg/dL AST (17-59) U/L ALT (0-50) U/L Alkaline Phosphatase (38-126) U/L Serum Total Protein (6.3-8.2) g/dL Albumin (3.5-5.0) g/dL Urine Color Yellow (Yellow) Urine Appearance Clear (Clear) Urine pH 5.5 (4.6-8.0) Ur Specific [place] 1.025 (1.005-1.030) Urine Protein Trace A (Negative) Urine Glucose (UA) Negative (Negative) mg/dL Urine Ketones Negative (Negative) Urine Blood Large A (Negative) Urine Nitrite Negative (Negative) Urine Bilirubin Negative (Negative) Urine Urobilinogen 0.2 (0.2) mg/dL Ur Leukocyte Esterase Trace A (Negative) U Hyaline Cast (Auto) NONE SEEN (0-2) /LPF Urine Microscopic RBC >100 A (0-5) /HPF Urine Microscopic WBC 6-10 A (0-5) /HPF Ur Epithelial Cells None Seen (None Seen) /HPF Urine Bacteria None Seen (None Seen) /HPF Urine Culture Reflexed YES (NO) Chlamydia DNA Probe (NEGATIVE) N.gonorrhoeae DNA Probe (NEGATIVE) - Progress Progress: improved Progress Note: 48-year-old male presents to our ED for evaluation of painless hematuria. CT abdomen pelvis negative for renal masses. However bilateral nephrolithiasis observed. No obstructing uropathy. Urinalysis shows hematuria. No obvious UTI. Patient currently on Augmentin for dental infection. Patient continue the Augmentin. Renal function is within normal limits. Patient currently resting comfortably. No active pain. Hemoglobin within normal limits. We will discharge patient home and have him follow-up with urology Marlena A referral to [facility] was provided. Patient agrees to follow-up as discussed. He will continue taking the antibiotics as prescribed. No indication for further workup at this time will discharge home. Patient voices no other complaints or concerns at this time. Portions of this note were created with voice recognition technology. There may be grammatical, spelling, punctuation or sound alike errors Complexity problem addressed is moderate acute complicated. No critical care time. Complex of data reviewed and analyzed is moderate. Test ordered test reviewed results analyzed and correlated clinically with history and physical exam. Risk of complication and or risk of morbidity/mortality patient management is low. Vital stable. Time spent to discharge patient approximately 15 minutes. Plan of care established for shared decision making. No social determinants of health present impede follow-up. Portions of this note were created with voice recognition technology. There may be grammatical, spelling, punctuation or sound alike errors 04/01/24 14:23 Counseled pt/family regarding: lab results, diagnosis, need for follow-up, rad results - Departure Departure Disposition: Home Clinical Impression: Hematuria, Nephrolithiasis, Fatty liver Condition: Stable Critical Care Time: No Referrals: ROMAN IBANEZ [Primary Care Provider] - Follow up/PCP as directed [facility] [NON-STAFF PHY W/O PRIVILEGES] - Follow up/PCP as directed Additional Instructions: Discharge/Care Plan WESTLEYCAMERON CAMARA was seen on 04/01/24 in the Emergency Room. The patient was counseled regarding Diagnosis,Lab results, Imaging studies, need for follow up and when to return to the Emergency Room. Prescriptions given: Discharge Note I have spoken with the patient and/or caregivers. I have explained the patient's condition, diagnosis and treatment plan based on the information available to me at this time. I have answered the patient's and/or caregiver's questions and addressed any concerns. The patient and/or caregivers have as good understanding of the patient's diagnosis, condition and treatment plan as can be expected at this point. The vital signs have been stable. The patient's condition is stable and appropriate for discharge from the emergency department. The patient will pursue further outpatient evaluation with the primary care physician or other designated or consulting physician as outlined in the discharge instructions. The patient and/or caregivers are agreeable to this plan of care and follow-up instructions have been explained in detail. The patient and/or caregivers have received these instruction. The patient/and or caregivers are aware that any significant change in condition or worsening of symptoms should prompt an immediate return to this or the closest emergency department or call 911.
[2024-04-01 12:12] VITALS: RESP 14; TEMP 98.4
[2024-04-01] MEDS ORDERED: Sodium Chloride 0.9% 1000 ML 1,000 ML ONE (12:19)
[2024-04-01 12:20] LABS: Absolute Neutrophil Ct (ANC) 3.83 x10^3/uL (1.78-5.38); BASOPHIL % 0.7 % (0.2-1.2); Basophil (Absolute #) 0.06 x10^3/uL (0.01-0.08); Eosinophil % 1.5 % (0.8-7.0); Eosinophil (Absolute #) 0.13 x10^3/uL (0.04-0.54); Hemoglobin 14.9 g/dL (13.7-17.5); IMMATURE GRAN # 0.03 x10^3u/L (0.001-0.031); IMMATURE GRAN % 0.4 % (0.001-0.429); Lymphocyte (Absolute #) 3.87 x10^3/uL (1.32-3.57); Lymphocytes % 46.1 % (21.8-53.1); Mean Cell Volume 90.5 fL (79.0-92.2); Mean Corpuscular Hgb Concent. 33.1 g/dL (32.3-36.5); Mean Platelet Volume 8.3 fL (9.4-12.4); Monocyte (Absolute #) 0.48 x10^3/uL (0.30-0.82); Monocytes % 5.7 % (5.3-12.2); Neutrophil % 45.6 % (34.0-67.9); Platelet Count 322 x10^3/uL (163-337); Red Blood Count 4.97 x10^6/uL (4.63-6.08); Red Cell Distribution Width 12.8 % (11.6-14.4); White Blood Count 8.4 x10^3/uL (4.23-9.07)
[2024-04-01] MEDS: Sodium Chloride 0.9% 1000 ML 1,000 ML IV STA (12:20)
[2024-04-01 12:25] LABS: Appearance Clear (Clear); Bacteria None Seen /HPF (None Seen); Bilirubin Negative (Negative); Blood Large (Negative); Epithelial Cells None Seen /HPF (None Seen); Glucose, Urine Negative (Negative); Hyaline Casts NONE SEEN /LPF (0-2); Ketones Negative (Negative); Leukocyte Esterase Trace (Negative); Nitrite Negative (Negative); Ph 5.5 (4.6-8.0); Protein,Urine Dip Trace (Negative); RBC >100 /HPF (0-5); Specific Gravity 1.025 (1.005-1.030); Urobilinogen 0.2 mg/dL (0.2)
[2024-04-01 12:26] LABS: ADD URINE CULTURE? YES (NO)
[2024-04-01 12:31] LABS: ALBUMIN 4.4 g/dL (3.5-5.0); ANION GAP 13.3 MEQ/L (5-15); BILIRUBIN,TOTAL 0.4 mg/dL (0.2-1.3); Calcium 10.1 mg/dL (8.4-10.2); Creatinine 1 1.12 mg/dL (0.66-1.25); EST GLOMERULAR FILTRATION RATE 81.5 ML/MIN; Total Protein 7.3 g/dL (6.3-8.2)
--- NOTE | 2024-04-01 13:18 | XRAY ---
Indication: Pain. Blood in urine. Multiple contiguous axial images obtained through the abdomen and pelvis without contrast using renal stone protocol. Comparison: January 03, 2020. Lung bases again demonstrate minimal dependent atelectasis. Heart not enlarged. Again a few nonobstructing bilateral renal micro-calculi. Stomach distended with food/fluid. Noncontrasted stomach and bowel loops appear nonobstructed again with normal appendix. New diffuse fatty liver. No free fluid/air. Remaining liver, gallbladder, pancreas, spleen, adrenal glands, kidneys, ureters, bladder, and aorta appear unremarkable for noncontrast exam. Osseous structures intact. Impression: 1. Again nonobstructing bilateral renal micro-calculi. 2. New fatty liver. 3. Remaining CT abdomen/pelvis without contrast exam is again negative.
[2024-04-01 13:51] LABS: CHLAMYDIA DNA NOT DETECTED (NEGATIVE); GC DNA Probe NOT DETECTED (NEGATIVE)
[2024-04-01 14:25] VITALS: BP 119/76; PULSE 81; O2SAT 98
== END 2024-04-01 14:41 | disposition home or self-care (01) ==
LOC: ED 11:53
DX: N20.0 Calculus of kidney (principal); R31.9 Hematuria, unspecified; K76.0 Fatty (change of) liver, not elsewhere classified; R30.0 Dysuria; Z79.891 Long term (current) use of opiate analgesic; Z79.899 Other long term (current) drug therapy; Z72.0 Tobacco use
CPT/HCPCS: 36000; 36415; 74176; 80053; 81001; 85025; 87086; 87491; 87591; 96360; 99284